=== PATIENT | male | born 1960 | race Caucasian/White ===

== ENCOUNTER → 2019-11-15 | Outpatient (CLI) | payer OTHER ==
[~2019-11-15] MED LIST: AMBEREN PO; CYANOCOBAL1000 MCG/1 IM; ENTOCORT EC3 MG PO; FERROUS SULFAT325 M1 PO; HYDROCODON-ACE1 EAC7 PO; HYDROCODON-ACE1 EAC8 PO; HYDROCODONE-AP1 EA11 PO; IRON PO; IRON325 M1 PO; LANSOPRAZOLE PO; LUNESTA3 MG PO; MELATONIN10 M3 PO; PREDNISONE 10 M10 M1 PO; PREVACID 30MG C30 M1 PO; PREVACID15 MG PO; REMICADE 1100 MG/VIA IV; SUDAFED 12 HOU120 MG PO; SUDAFED30 MG PO; TYLENOL EX-STR500 M2 PO; VICODIN 5-5001 EACH PO; VITAMIN C100 MG PO; ZINC30 MG PO
== END ==
LOC: LAB 11:40
PROVIDERS: ATTEND Student in an Organized Health Care Education/Training Program
DX: Z01.812 Encounter for preprocedural laboratory examination (principal); Z20.828 Contact with and (suspected) exposure to other viral communicable diseases

== ENCOUNTER → 2019-11-17 | Outpatient (CLI) | payer OTHER ==
[~2019-11-17] VITALS: Ht 180.3 cm; Wt 77.1 kg
--- NOTE | 2019-11-20 10:03 | P ---
[facility] [place] [address] PROCEDURE REPORT Name: JITENDRA PIÑA Room #: REG [facility]#: [id number] Admission: 11/17/19 Attend Phys: Rocky Wheatley MD Discharge: Date of : 60 Report #: [id number] THIS REPORT FOR: cc: JENNIFER - Family physician unknown JENNIFER - Family physician unknown Rocky Wheatley MD ~ CC: JENNIFER unknown Rocky Wheatley DATE OF SERVICE: 11/17/2019 OUTPATIENT ILEOSCOPY REPORT BRIEF HISTORY: The patient is a 59-year-old male known to me with history of Crohn's disease with previous total proctocolectomy for Crohn's disease. He has had recent weight loss. Recent labs revealed a slight anemia and slightly elevated sedimentation rate and CRP levels. He has not had any bleeding in the ileostomy bag and there has been no change in his stomal output. PREOPERATIVE DIAGNOSIS: Crohn's disease. POSTOPERATIVE DIAGNOSES: Multiple small ulcers of distal ileum consistent with active Crohn's disease. MEDICATIONS: Deep sedation with propofol per anesthesia. SPECIMEN: Biopsies of ulcers distal ileum. ESTIMATED BLOOD LOSS: 3 mL. PROCEDURE: Ileoscopy with biopsy. FINDINGS: Prior to propofol sedation, procedure of ileoscopy was discussed with the patient as well as potential risks and its complications. He indicates he understands and desires to proceed. DESCRIPTION OF PROCEDURE: With the patient in supine position, the ileal stoma was inspected. It was slightly prolapse. The stomal opening was somewhat tight. I was able to examine him with my fifth digit and very slowly was able to advance my glove fifth digit into the lumen of the stoma. Subsequently, the Olympus video upper endoscope was inserted into the ileostomy and advanced under direct vision. The prep was good. The scope was advanced about 40-50 cm. At that point, the scope was slowly withdrawn and careful circumferential views were obtained. For the most part, the mucosa was intact. However, there were few small scattered ulcers. There is no evidence of bleeding. The intervening mucosa was unremarkable. All the ulcers had a benign appearance. For the most [facility] [address] [place] [address] PROCEDURE REPORT Name: JITENDRA PIÑA Room #: REG [facility] Lola.#: [id number] Admission: 11/17/19 Attend Phys: Rocky Wheatley MD Discharge: Date of : 60 Report #: [id number] part, the ulcers were 5 mm or less in greatest dimension. Multiple biopsies were obtained. The distal 10 cm of the ileum was completely normal without evidence of ulceration. The mucosa involving the stoma was unremarkable as well. The scope was withdrawn. The patient tolerated the procedure well. CONDITION OF THE PATIENT UPON DISCHARGE: Following procedure, the patient drowsy, aroused, conversant and will be discharged home when fully ambulatory. INSTRUCTIONS TO THE PATIENT AND FAMILY AT THE TIME OF DISCHARGE: The patient has evidence of ulceration and clinical history, laboratory studies and endoscopic findings are supportive of active Crohn's disease. At this point, he has evidence of mild disease with ulceration of the ileum. We will place him on Entocort 9 mg daily. We will have him return for followup in the office. At that point discuss long-term management options. He does have mild disease, but if disease is not controlled or he has evidence of more aggressive disease, biologic may be a consideration. <ELECTRONICALLY SIGNED> By: Rocky Wheatley MD 11/20/19 [phone] Rocky Wheatley MD /nt
--- NOTE | 2019-11-21 15:07 | PATH ---
[facility] [address] [address] PATHOLOGY RPT PROCEDURE Name: EZIO PIÑA Luc Room #: REG [facility] M..#: [id number] Admission: 11/17/19 Date of : 60 Discharge: Report #: [id number] Path Case #: [id number] Accession Number: [id number] . 01 Material submitted: . ileum - BIOPSY OF ILEUM, HX OF CROHN'S DISEASE . 01 Clinical history: . History of Crohn's disease . 02 Diagnosis: Small bowel, ileum history of Crohn's disease, endoscopic biopsy: - Moderate active inflammation associated with ulceration, compatible with the provided history of Crohn's disease. - Negative for dysplasia or malignancy. . (IUV:mml; 11/21/2019) QLM 11/21/2019 1325 Local . 02 Electronically signed: . Minnie Loomis MD, Pathologist NPI- [id number] . 01 Gross description: . The specimen is received in formalin, labeled "Vishjenny Ezio, BX of ileum" and consists of multiple fragments of richards tissue measuring 1.3 x 0.8 x 0.4 cm in aggregate which are entirely submitted in A1. (SDY; 11/20/2019) SYU/SYU 11/20/2019 1334 Local . 02 Pathologist provided ICD-10: K52.9, K63.3 . 02 CPT . 196928 Specimen Comment: A courtesy copy of this report has been sent to [phone] Specimen Comment: Report sent to Performed at: [address], [place], [place] [id number] MD Titus Chavarria MD Phone: [phone] Performed at: [address] [id number] MD Minnie Loomis MD Phone: [phone]
== END | disposition home or self-care (01) ==
LOC: GI 07:02
PROVIDERS: ATTEND Specialist
DX: K50.90 Crohn's disease, unspecified, without complications (principal); Z79.899 Other long term (current) drug therapy; Z98.890 Other specified postprocedural states; Z87.891 Personal history of nicotine dependence
CPT/HCPCS: 62110; 62900

== ENCOUNTER 2021-05-30 10:08 | Inpatient (IN) | payer OTHER ==
[~2021-05-30] VITALS: Ht 180.3 cm; Wt 65.8 kg
[2021-05-30 10:18] VITALS: BP 97/68
[2021-05-30 10:41] LABS: ABSOLUTE NEUTROPHILS 6.6 thou/uL (1.4-8.2); BASOPHILS 0.5 % (0.0-2.0); HEMATOCRIT 44.1 % (42.0-52.0); HEMOGLOBIN 15.3 gm/dL (14.0-18.0); LYMPHOCYTES 8.7 % (24.0-44.0); MCH 29.9 pg (26.0-34.0); MCHC 34.7 g/dL (28.0-37.0); MCV 86.2 fL (80.0-100.0); MONOCYTES 10.8 % (1.0-8.0); PLATELET COUNT 583 thou/uL (150-400); RBC 5.12 mil/uL (4.50-6.00); RDW 13.9 % (10.5-14.5); WBC 8.5 thou/uL (4.0-11.0)
[2021-05-30 10:56] LABS: CALCIUM 9.7 mg/dL (8.5-10.1); CREATININE 1.6 mg/dL (0.7-1.3)
[2021-05-30 10:58] LABS: ALBUMIN 2.7 g/dL (3.4-5.0); DIRECT BILIRUBIN 0.1 mg/dL (<0.1-0.2); MAGNESIUM 1.7 mg/dL (1.8-2.4); TOTAL BILIRUBIN 0.4 mg/dL (0.2-1.0); TOTAL PROTEIN 8.5 g/dL (6.4-8.2)
[2021-05-30 14:55] VITALS: BP 100/68
[2021-05-30 19:40] VITALS: BP 100/63
[2021-05-31 05:30] LABS: CALCIUM 8.3 mg/dL (8.5-10.1); CREATININE 1.2 mg/dL (0.7-1.3); POTASSIUM 4.4 mmol/L (3.5-5.1)
[2021-05-31 05:35] LABS: ALBUMIN 1.9 g/dL (3.4-5.0); PHOSPHORUS 3.4 mg/dL (2.6-4.7)
--- NOTE | 2021-05-31 06:00 | NUR ---
Assumed pt care at 1900. A/OX4,VSS. Denies pain or N/V,remains on a clear liquid diet. Reports loose stools though improved,cdiff negative. Up ad dio. Resting at this time,will continue to monitor pt.
[2021-05-31 09:32] VITALS: BP 99/60
--- NOTE | 2021-05-31 09:53 | EKG ---
[address] [address] ELECTROCARDIOGRAM REPORT Name: JITENDRA PIÑA Room #: 461-P ADM IN M.R.#: [id number] Admission: 05/30/21 Attend Phys: Saul Cuellar Discharge: Date of : 60 Report #: [id number] [facility] ED Test Date: 2021-05-30 Test Time: 10:38:44 Pat Name: JITENDRA PIÑA Department: Room: [facility] Gender: M Ebd Teacher: JOAN : 1960 Requested By: Rafael Mcknight Order Number: [id number] MD: Can Camilo Measurements Intervals [place] Rate: 80 P: [place]: QRS: 67 QRSD: 94 T: 72 QT: 339 QTc: 391 Interpretive Statements Sinus rhythm Nonspecific T wave abnormalities Compared to ECG 01/29/2012 11:47:59 T wave changes Electronically Signed On 05-31-2021 9:52:37 [employer] by Can Camilo [email or web address] <ELECTRONICALLY SIGNED> By: Can Camilo MD 05/31/21 0952 1038 Irving Camilo MD /EFRAIN
[2021-05-31 16:08] VITALS: BP 97/60
[2021-05-31 17:41] VITALS: BP 97/60
[2021-05-31] MEDS ORDERED: PREDNISONE 20 M20 MG PO (17:48)
[2021-05-31 17:56] VITALS: BP 97/60
== END 2021-05-31 17:58 | disposition home or self-care (01) | DRG 385 ==
LOC: ER 10:08 → EROBS 12:28 → 4W 12:28
PROVIDERS: Student in an Organized Health Care Education/Training Program; ADMIT Hospitalist; ATTEND Hospitalist
DX: K50.00 Crohn's disease of small intestine without complications (principal); N17.0 Acute kidney failure with tubular necrosis; E87.1 Hypo-osmolality and hyponatremia; E46 Unspecified protein-calorie malnutrition; M54.50 Low back pain, unspecified; G89.29 Other chronic pain; E86.0 Dehydration; E53.8 Deficiency of other specified B group vitamins; Z20.822 Contact with and (suspected) exposure to COVID-19; Z90.49 Acquired absence of other specified parts of digestive tract; Z93.3 Colostomy status; Z82.49 Family history of ischemic heart disease and other diseases of the circulatory system; Z83.6 Family history of other diseases of the respiratory system; Z87.891 Personal history of nicotine dependence; Z80.0 Family history of malignant neoplasm of digestive organs; Z68.20 Body mass index [BMI] 20.0-20.9, adult
CPT/HCPCS: 10040